=== PATIENT | male | born 1930 | race Caucasian/White ===

== ENCOUNTER 2018-11-16 20:20 | Emergency (ER) | payer MEDICARE ==
--- NOTE | 2018-11-16 21:12 | RAD ---
RADIOGRAPH CHEST 1 VIEW: DATE: 11/16/2018 HISTORY: 88-year-old male with fever FINDINGS: The thoracic aorta is tortuous and ectatic. There is no evidence of airspace density, pulmonary edema , cardiomegaly, or pneumothorax. The lateral costophrenic angles are not effaced. IMPRESSION: 1) No acute pulmonary findings. 2) ectasia of thoracic aorta.
[2018-11-16 21:29] LABS: #Basophils 0.1 thou/uL (0.0-0.2); #Lymphocytes 1.1 thou/uL (1.20-3.40); #Monocytes 2.3 thou/uL (0.11-0.59); #Neutrophils 11.8 thou/uL (1.40-6.50); %Basophils 0.7 % (0.0-1.0); %Eosinophils 0.1 % (0.0-10.0); %Lymphocytes 7.2 % (21.0-51.0); %Monocytes 14.7 % (0.0-10.0); %Neutrophils 77.4 % (42.0-75.0); Hemoglobin 10.8 g/dL (14.0-18.0); Mean Corpuscular HGB CONC 34.6 g/dL (32.0-36.0); Mean Corpuscular Hemoglobin 32.2 pg (27.0-31.0); Mean Corpuscular Volume 93.1 fL (78.0-98.0); Mean Platelet Volume 7.4 fL (7.4-10.4); Platelet Count 139 thou/uL (130-400); RBC Distribution Width 12.9 % (11.5-14.5); Red Blood Cell (RBC) Count 3.37 mill/uL (4.70-6.10); White Blood Cell (WBC) Count 15.3 thou/uL (4.8-10.8)
[2018-11-16 21:44] LABS: ALT (SGPT) 21 U/L (8-55); AST (SGOT) 31 U/L (5-34); Albumin 3.7 g/dL (3.4-4.8); Alkaline Phosphatase 73 U/L (40-150); Anion Gap 14 mmol/L (10-20); BUN (Urea Nitrogen) 34 mg/dL (8.4-25.7); Bilirubin, Total 1.5 mg/dL (0.2-1.2); Calc. Creatinine Clearance 0 mL/min (70-130); Calcium 9.4 mg/dL (7.8-10.44); Carbon Dioxide 24 mmol/L (23-31); Chloride 103 mmol/L (98-107); Estimated GFR-MDRD 45; Globulin 2.9 g/dL (2.4-3.5); Glucose 116 mg/dL (83-110); Potassium 3.9 mmol/L (3.5-5.1); Protein, Total 6.6 g/dL (5.8-8.1); Sodium 137 mmol/L (136-145)
[2018-11-16 21:56] LABS: Bilirubin Small (Negative); Blood, Urine Large (Negative); Clarity Slightly Cloudy (Clear); Glucose, Urine (Dipstick) 100 mg/dL (Negative); Leukocyte Negative (Negative); Nitrite Negative (Negative); Protein, Urine (Dipstick) 100 mg/dL (Neg-Trace); Urobilinogen 0.2 mg/dL (0.2-1.0); pH, Urine 5.5 (5.0-9.0)
[2018-11-16 22:01] LABS: RBC/HPF 21-50 HPF (0-3)
[2018-11-16 22:02] LABS: Bacteria/HPF Rare-Few HPF (None Seen); Renal Epithelial 0-3 HPF (0-3); Squamous Epithelial 0-3 HPF (0-3); WBC/HPF 0-3 HPF (0-3)
[2018-11-16] MEDS ORDERED: Amoxicillin/Potassium Clav 875 MG TAB ONE (22:15)
== END 2018-11-16 22:23 | disposition home or self-care (01) ==
LOC: SCSER 20:20
DX: H60.92 Unspecified otitis externa, left ear (principal); R31.9 Hematuria, unspecified; G47.30 Sleep apnea, unspecified
CPT/HCPCS: 36415; 71045; 80053; 81003; 81015; 83605; 85025; 87040

== ENCOUNTER 2019-01-02 11:48 | Outpatient (CLI) | payer MEDICARE ==
--- NOTE | 2019-01-02 13:28 | MRI ---
Lumbar spine MRI without contrast: 01/02/2019 COMPARISON: None HISTORY: Chronic back pain radiating down the left lower extremity TECHNIQUE: Multiplanar multisequence MR imaging of the lumbar spine obtained without contrast FINDINGS: There is mild retrolisthesis at L1-2, L2-3, L3-4, and L4-5. 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 The sagittal STIR imaging demonstrates no focal area of osseous marrow edema. T11-12: Disc space narrowing, disc desiccation, and mild disc bulge. Anterior osteophyte formation an d bilateral facet hypertrophy noted. Moderate left and severe right neural foraminal stenosis. No significant central canal stenosis. T12-L1: There is disc space narrowing and disc desiccation with mild disc bulge and anterior osteophy te formation. Mild bilateral facet hypertrophy. No significant central canal or neural foraminal stenosis. L1-2: There is disc space narrowing, disc desiccation, and disc osteophyte complex. There is posterio r left-sided vertebral body osteophyte extending into the left neural foramen. No significant central canal stenosis. There is mild right and mild/moderate left neural foraminal stenosis. L2-3: There is disc space narrowing and disc desiccation with anterior osteophyte formation and bilat eral facet hypertrophy. No significant central canal stenosis. Mild bilateral neural foraminal stenosis. L3-4: Bilateral facet hypertrophy noted. There is disc space narrowing and disc desiccation with a di sc osteophyte complex causing mild central canal stenosis. There is moderate/severe bilateral neural foraminal stenosis, right greater than left. L4-5: There is disc space narrowing and disc desiccation with disc osteophyte complex and bilateral f acet hypertrophy. No central canal stenosis. Moderate right and moderate/severe left neural foraminal stenosis. L5-S1: Prominent bilateral facet hypertrophy with moderate/severe bilateral neural foraminal stenosis . There is disc space narrowing and disc desiccation with mild central canal stenosis. There is a posterior mid pole left renal cyst, as seen on prior CT of abdomen and pelvis performed 11/11/2016. Imaged retroperitoneal structures demonstrate no acute findings. 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 Transcribed Date/Time: 01/02/2019 1:44 PM
== END 2019-01-02 11:49 | disposition home or self-care (01) ==
LOC: SCSMRI 11:48
PROVIDERS: ATTEND Orthopaedic Surgery
DX: M48.061 Spinal stenosis, lumbar region without neurogenic claudication (principal); M47.816 Spondylosis without myelopathy or radiculopathy, lumbar region
CPT/HCPCS: 72148